=== PATIENT | female | born 1960 | race African-American/Black ===

== ENCOUNTER 2021-07-09 16:26 | Emergency (ER) | payer MEDICAID ==
[~2021-07-09] VITALS: Ht 157.5 cm; Wt 84.0 kg
[2021-07-09 16:36] VITALS: BP 169/89
== END 2021-07-09 21:16 | disposition home or self-care (01) ==
LOC: ER 16:26
DX: M79.675 Pain in left toe(s) (principal); I10 Essential (primary) hypertension; Z90.49 Acquired absence of other specified parts of digestive tract; Z88.0 Allergy status to penicillin
CPT/HCPCS: 73620; 99283